=== PATIENT | male | born 1985 | race Caucasian/White ===

== ENCOUNTER 2018-08-30 18:48 | Emergency (ER) | payer OTHER, SELFPAY ==
[2018-08-30 18:55] VITALS: BP 167/142; PULSE 80; RESP 16; TEMP 36.9; O2SAT 96
[2018-08-30] MEDS: Tetracaine 0.5% 4 ML BTL (19:15)
--- NOTE | 2018-08-30 19:26 | W.ED.GENAD ---
Discharge Plan Disposition Patient Disposition: HOME Condition: Fair Discharge Details Chief Complaint: EyeProblem Clinical Impression: Foreign body in eye, Abrasion, corneal Primary Care Provider: Deisy Anthony ED Provider: Spring Mcmahan Home Meds and New Rx's Prescriptions: No Action No Known Home Meds RF: 0 Discharge Instructions Instructions: Corneal Abrasion (ED), Eye Foreign Body (ED) Additional Instructions: Continue to use the erythromycin ointment to the right eye 4 times daily. Please follow-up with [facility]. If you develop eye pain, discharge, changes in vision or other new/worsening symptoms please seek care urgently once again. Referrals: Deisy Anthony [Primary Care Provider] - Discharge Data Discharge Date/Time-TO BE ENTERED AT DEPARTURE: 08/30/18 20:04 Medical Decision Making Patient is a 32 year old male presenting with c/c of right eye pain. Reprots that yesterday, while at work, he believes he suffered FB to the right eye. States that he did flush the eye but that despite this, his FB sensation has persisted. Reports that the FB feels to be along the lateral aspect of the eye. Has noted it to be injected. Reprots that vision can be slightly blurred compared to baseline. Wears corrective lenses at baseline. No contact lenses. Was wearing protective eye equipment at the time he suffered the presumed FB. On exam, a very small flec of foreign debris was noted when the upper lid was everted, this was removed with q-tip. Patient immediately feels improved. Plan to now evaluate with slit lamp. Secondary to shortage, no fluoroscein is available. Patient was examined under slit lamp without fluorscein. No further FB was noted. Noted small abrasions just left of center. Patient will be treated for corneal abrasion iwth erythromycin ophthalmic ointment. He typical receives care at [facility], will contact them tomorrow to schedule follow up appointment as soon as possible. He was given strict return precautions. He continues to report that pain and FB sensation have resolved after removal of FB in upper lid. All of his questions and concerns were addressed, he is in agreement with this plan. HPI General Mode of arrival: ambulatory. Date/Time Provider Initiated Documentation: 08/30/18 19:07. Limitations to Documentation: no limitations. Information obtained by: patient. History of Present Illness 32 year old M presents to the emergency department with the chief complaint of left eye pain and injection, described as moderate, with intensity rated at 5. Quality is described as aching, and is localized to the eyes. Patient reports no radiation. Patient started experiencing this day(s) (1) and it has been constant. No relieving factors improve symptom(s), Movement worsens symptoms (blinking makes eye pain feel worse) . Patient notes no other symptoms.; denies fever/chills, headaches, loss of appetite and rash. Patient did receive the following treatments prior to arrival, other (patient flushed eye yesterday) Related Data Home Medications Medication Instructions Recorded Confirmed Unknown [No Known Home Meds] 08/30/18 08/30/18 Allergies Allergy/AdvReac Type Severity Reaction Status Date / Time No Known Allergies Allergy Unverified 08/30/18 19:01 General Stated Complaint: EyeProblem SHANEKA: 3 Review of Systems Constitutional Reports as per HPI, Denies chills and Denies fever(s) Eyes Reports as per HPI, Denies change in vision, Denies diplopia, Denies eye discharge, Denies floaters, Reports irritation, Denies loss of vision and Reports eye pain (FB sensation) ENT Denies mouth pain, Denies nasal discharge, Denies nasal obstruction and Denies nasal trauma Respiratory Denies cough Integumentary/Breasts Denies skin pain, Denies sores, Denies wounds and Denies jaundice Neurologic Denies loss of vision [facility] Social History Smoking/Tobacco Use Status: Current-Occasional Exam Const General: cooperative, healthy appearing, comfortable, no acute distress, well developed and well groomed Nutritional Appearance: average body habitus Orientation: alert and awake [facility] Head: normal to inspection and normocephalic Ears: hearing grossly normal bilaterally and external ears normal Face and sinus: normal facial exam and sinuses nontender Eyes General: appearance normal, both eyes and all related structures Alignment and Position: alignment normal Eyelids: eyelids normal Conjunctivae: conjunctival abnormality (patient appears injected on the left eye. No discharge) Cornea: corneas abnormal on the left abrasion central; fluorescein not used, without edema, with no foreign body noted and without ulcerations Pupils: PERRL EOM: EOM intact bilaterally Direct ophthalmoscopy: normal light reflex Neck Neck: normal visual inspection, full ROM and no lymphadenopathy Resp Effort & Inspection: normal respiratory effort, able to speak in complete sentences and no respiratory distress Auscultation: clear to auscultation bilaterally Cardio Rate: regular rate Rhythm: regular rhythm Heart Sounds: S1 normal and S2 normal Skin General skin exam: no rashes or lesions noted Lesions: no lesions Rashes: no rashes Neuro General: alert and awake Cranial Nerves: CN's II-XI intact bilaterally Cognition: normal cognition Speech: speech normal Gait: normal gait Psych Appearance: grossly normal and well kempt Mental Status: mental status grossly normal Speech and Movement: speech and movement normal Mood: congruent mood Course Vital Signs Temperature 36.9 C 08/30/18 18:55 Pulse 80 08/30/18 18:55 Respiratory Rate 16 08/30/18 18:55 Blood Pressure 167/142 H 08/30/18 18:55 Pulse Oximetry 96 08/30/18 18:55 Temperature 36.9 C 08/30/18 18:55 Temperature Source Skin 08/30/18 18:55 Pulse 80 08/30/18 18:55 Respiratory Rate 16 08/30/18 18:55 Respiratory Effort 08/30/18 19:02 Blood Pressure 167/142 H 08/30/18 18:55 Blood Pressure Position Sitting 08/30/18 18:55 Pulse Oximetry 96 08/30/18 18:55 Oxygen Delivery Method Room Air 08/30/18 18:55 Oxygen Flow Rate 0 08/30/18 18:55 Pain Level 5 08/30/18 18:55 Comment 08/30/18 18:55
--- NOTE | 2018-08-30 19:30 | ED.GENADUL_ITS ---
Discharge Plan Disposition Patient Disposition: HOME Condition: Fair Discharge Details Chief Complaint: EyeProblem Clinical Impression: Foreign body in eye, Abrasion, corneal Primary Care Provider: Deisy Anthony ED Provider: Spring Mcmahan Home Meds and New Rx's Prescriptions: No Action No Known Home Meds RF: 0 Discharge Instructions Instructions: Corneal Abrasion (ED), Eye Foreign Body (ED) Additional Instructions: Continue to use the erythromycin ointment to the right eye 4 times daily. Please [place] [facility] If you develop eye pain, discharge, changes in vision or other new/worsening symptoms please seek care urgently once again. Referrals: Deisy Anthony [Primary Care Provider] - Discharge Data Discharge Date/Time-TO BE ENTERED AT DEPARTURE: 08/30/18 20:04 Medical Decision Making Patient is a 32 year old male presenting with c/c of right eye pain. Reprots that yesterday, while at work, he believes he suffered FB to the right eye. States that he did flush the eye but that despite this, his FB sensation has persisted. Reports that the FB feels to be along the lateral aspect of the eye. Has noted it to be injected. Reprots that vision can be slightly blurred compared to baseline. Wears corrective lenses at baseline. No contact lenses. Was wearing protective eye equipment at the time he suffered the presumed FB. On exam, a very small flec of foreign debris was noted when the upper lid was everted, this was removed with q-tip. Patient immediately feels improved. Plan to now evaluate with slit lamp. Secondary to shortage, no fluoroscein is available. Patient was examined under slit lamp without fluorscein. No further FB was noted. Noted small abrasions just left of center. Patient will be treated for corneal abrasion iwth erythromycin ophthalmic ointment. He typical receives care [place] [facility], will contact them tomorrow to schedule follow up appointment as soon as possible. He was given strict return precautions. He continues to report that pain and FB sensation have resolved after removal of FB in upper lid. All of his questions and concerns were addressed, he is in agreement with this plan. HPI General Mode of arrival: ambulatory . Date/Time Provider Initiated Documentation: 08/30/18 19:07 . Limitations to Documentation: no limitations . Information obtained by: patient . History of Present Illness 32 year old M presents to the emergency department with the chief complaint of left eye pain and injection, described as moderate, with intensity rated at 5. Quality is described as aching, and is localized to the eyes. Patient reports no radiation. Patient started experiencing this day(s) (1) and it has been constant. No relieving factors improve symptom(s), Movement worsens symptoms (blinking makes eye pain feel worse) . Patient notes no other symptoms.; denies fever/chills, headaches, loss of appetite and rash. Patient did receive the following treatments prior to arrival, other (patient flushed eye yesterday) Related Data Home Medications Medication Instructions Recorded Confirmed Unknown [No Known Home Meds] 08/30/18 08/30/18 Allergies Allergy/AdvReac Type Severity Reaction Status Date / Time No Known Allergies Allergy Unverified 08/30/18 19:01 General Stated Complaint: EyeProblem SHANEKA: 3 Review of Systems Constitutional Reports as per HPI, Denies chills and Denies fever(s) Eyes Reports as per HPI, Denies change in vision, Denies diplopia, Denies eye discharge, Denies floaters, Reports irritation, Denies loss of vision and Reports eye pain (FB sensation) ENT Denies mouth pain, Denies nasal discharge, Denies nasal obstruction and Denies nasal trauma Respiratory Denies cough Integumentary/Breasts Denies skin pain, Denies sores, Denies wounds and Denies jaundice Neurologic Denies loss of vision [facility] Social History Smoking/Tobacco Use Status: Current-Occasional Exam Const General: cooperative, healthy appearing, comfortable, no acute distress, well developed and well groomed Nutritional Appearance: average body habitus Orientation: alert and awake [facility] Head: normal to inspection and normocephalic Ears: hearing grossly normal bilaterally and external ears normal Face and sinus: normal facial exam and sinuses nontender Eyes General: appearance normal, both eyes and all related structures Alignment and Position: alignment normal Eyelids: eyelids normal Conjunctivae: conjunctival abnormality (patient appears injected on the left eye. No discharge) Cornea: corneas abnormal on the left abrasion central; fluorescein not used, without edema, with no foreign body noted and without ulcerations Pupils: PERRL EOM: EOM intact bilaterally Direct ophthalmoscopy: normal light reflex Neck Neck: normal visual inspection, full ROM and no lymphadenopathy Resp Effort & Inspection: normal respiratory effort, able to speak in complete sentences and no respiratory distress Auscultation: clear to auscultation bilaterally Cardio Rate: regular rate Rhythm: regular rhythm Heart Sounds: S1 normal and S2 normal Skin General skin exam: no rashes or lesions noted Lesions: no lesions Rashes: no rashes Neuro General: alert and awake Cranial Nerves: CN's II-XI intact bilaterally Cognition: normal cognition Speech: speech normal Gait: normal gait Psych Appearance: grossly normal and well kempt Mental Status: mental status grossly normal Speech and Movement: speech and movement normal Mood: congruent mood Course Vital Signs Temperature 36.9 C 08/30/18 18:55 Pulse 80 08/30/18 18:55 Respiratory Rate 16 08/30/18 18:55 Blood Pressure 167/142 H 08/30/18 18:55 Pulse Oximetry 96 08/30/18 18:55 Temperature 36.9 C 08/30/18 18:55 Temperature Source Skin 08/30/18 18:55 Pulse 80 08/30/18 18:55 Respiratory Rate 16 08/30/18 18:55 Respiratory Effort 08/30/18 19:02 Blood Pressure 167/142 H 08/30/18 18:55 Blood Pressure Position Sitting 08/30/18 18:55 Pulse Oximetry 96 08/30/18 18:55 Oxygen Delivery Method Room Air 08/30/18 18:55 Oxygen Flow Rate 0 08/30/18 18:55 Pain Level 5 08/30/18 18:55 Comment 08/30/18 18:55
[2018-08-30] MEDS: Erythromycin Ophth Oint 3.5 GM TUBE OD (19:53)
== END 2018-08-30 20:04 | disposition home or self-care (01) ==
PROVIDERS: Emergency Provider Physician Assistant; PCP Nurse Practitioner
DX: T15.81XA Foreign body in other and multiple parts of external eye, right eye, initial encounter (principal); S05.01XA Injury of conjunctiva and corneal abrasion without foreign body, right eye, initial encounter
CPT/HCPCS: 99283

== ENCOUNTER 2019-05-09 10:19 | Emergency (ER) | payer OTHER, SELFPAY ==
[2019-05-09 10:22] VITALS: BP 126/75; PULSE 72; RESP 16; TEMP 36.8; O2SAT 98
--- NOTE | 2019-05-09 10:36 | W.ED.GENAD ---
Discharge Plan Disposition Patient Disposition: HOME Condition: Improving Discharge Details Chief Complaint: Abd Prob Clinical Impression: Abdominal pain Primary Care Provider: Deisy Anthony ED Provider: Fletcher Gagnon Home Meds and New Rx's Prescriptions: No Action No Known Home Meds RF: 0 Discharge Instructions Instructions: Abdominal Pain (ED) Additional Instructions: I recommend you begin Metamucil, available [id number], once daily. Return if you develop a fever, recurrent abdominal pain, or any other acute concerns. Medical Decision Making 33-year-old male presents from home with right abdominal and flank pain. He is afebrile, normotensive, with an exam that reveals both right flank and right lower quadrant tenderness. Differential diagnosis includes renal colic, small bowel obstruction, appendicitis. IV placed, labs obtained, patient given parenteral fluids, analgesic, antiemetic and patient referred for CT scan. CBC with white count 6, hematocrit 46, platelets 281. Chemistries are unremarkable. Urinalysis with concentrated urine with specific gravity 1.03, trace ketones. CT scan without significant acute findings. Patient's pain is improved, his abdomen is soft and benign on reexamination. He reveals recent constipation difficulties with use of MiraLAX. I discussed with him that he may have some bowel transit issues and would benefit from a trial of Metamucil. He stable and improved, understands return precautions, will discharge home at this time. HPI General Mode of arrival: ambulatory. Date/Time Provider Initiated Documentation: 05/09/19 10:20. Limitations to Documentation: no limitations. Information obtained by: patient. History of Present Illness 33 year old M presents to the emergency department with the chief complaint of Right-sided abdominal pain, described as moderate, Quality is described as constant, and is localized to the abdomen and right. Patient abdomen. Patient started experiencing this hour(s) and it has been constant. No relieving factors improve symptom(s), No exacerbating factors reported . Patient notes other (Nauseated, dark urine, no fever). Patient did receive the following treatments prior to arrival, none Related Data Home Medications Medication Instructions Recorded Confirmed Unknown [No Known Home Meds] 08/30/18 05/09/19 Allergies Allergy/AdvReac Type Severity Reaction Status Date / Time No Known Allergies Allergy Unverified 05/09/19 10:27 General Stated Complaint: Abd Prob SHANEKA: 3 Review of Systems Review of Systems 6 systems reviewed and otherwise neg [facility] Social History Smoking/Tobacco Use Status: Former Tobacco Use Alcohol Intake: former Drug use: Never Substance use type: does not use Do you feel safe at home: Yes Do you feel safe in your relationship?: Yes Additional Social history: quit smoking 3-4 years ago stopped drinking 26 days ago Exam Narrative Exam Narrative: GEN: awake, alert, oriented 3. Pleasant, well groomed, interactive. HEAD: Normocephalic, atraumatic ENT: Mucous membranes moist, oropharynx unremarkable, External ear exam unremarkable EYES: PERRL, EOMI NECK: Full ROM, no GABBY, no menigismus CHEST/RESP: Nontender, clear to auscultation bilateral, no wheeze/rhonchi/rales CARDIOVASCULAR: RRR, no murmur, rub stalin. 2+ Rad pulse bilateral ABDOMEN: Soft, tender right lower quadrant and right flank, no mass. +Bowel sounds EXT: Full ROM, no edema, no rash Neuro: Grossly normal neurologic exam, conversant, interactive. Psych: Speech fluent, thoughts congruent, affect normal Course Vital Signs Temperature 36.8 C 05/09/19 10:22 Pulse 72 05/09/19 10:22 Respiratory Rate 16 05/09/19 10:22 Blood Pressure 126/75 05/09/19 10:22 Pulse Oximetry 98 05/09/19 10:22 Temperature 36.8 C 05/09/19 10:22 Temperature Source Skin 05/09/19 10:22 Pulse 72 05/09/19 10:22 Respiratory Rate 16 05/09/19 10:22 Blood Pressure 126/75 05/09/19 10:22 Blood Pressure Position Sitting 05/09/19 10:22 Pulse Oximetry 98 05/09/19 10:22 Oxygen Delivery Method Room Air 05/09/19 10:22 Oxygen Flow Rate 0 05/09/19 10:22 Pain Level 7 05/09/19 10:22
--- NOTE | 2019-05-09 10:39 | ED.GENADUL_ITS ---
Discharge Plan Disposition Patient Disposition: HOME Condition: Improving Discharge Details Chief Complaint: Abd Prob Clinical Impression: Abdominal pain Primary Care Provider: Deisy Anthony ED Provider: Fletcher Gagnon Home Meds and New Rx's Prescriptions: No Action No Known Home Meds RF: 0 Discharge Instructions Instructions: Abdominal Pain (ED) Additional Instructions: I recommend you begin Metamucil, available [id number], once daily. Return if you develop a fever, recurrent abdominal pain, or any other acute concerns. Medical Decision Making 33-year-old male presents from home with right abdominal and flank pain. He is afebrile, normotensive, with an exam that reveals both right flank and right lower quadrant tenderness. Differential diagnosis includes renal colic, small bowel obstruction, appendicitis. IV placed, labs obtained, patient given parenteral fluids, analgesic, antiemetic and patient referred for CT scan. CBC with white count 6, hematocrit 46, platelets 281. Chemistries are unremarkable. Urinalysis with concentrated urine with specific gravity 1.03, trace ketones. CT scan without significant acute findings. Patient's pain is improved, his abdomen is soft and benign on reexamination. He reveals recent constipation difficulties with use of MiraLAX. I discussed with him that he may have some bowel transit issues and would benefit from a trial of Metamucil. He stable and improved, understands return precautions, will discharge home at this time. HPI General Mode of arrival: ambulatory . Date/Time Provider Initiated Documentation: 05/09/19 10:20 . Limitations to Documentation: no limitations . Information obtained by: patient . History of Present Illness 33 year old M presents to the emergency department with the chief complaint of Right-sided abdominal pain, described as moderate, Quality is described as constant, and is localized to the abdomen and right. Patient abdomen. Patient started experiencing this hour(s) and it has been constant. No relieving factors improve symptom(s), No exacerbating factors reported . Patient notes other (Nauseated, dark urine, no fever). Patient did receive the following treatments prior to arrival, none Related Data Home Medications Medication Instructions Recorded Confirmed Unknown [No Known Home Meds] 08/30/18 05/09/19 Allergies Allergy/AdvReac Type Severity Reaction Status Date / Time No Known Allergies Allergy Unverified 05/09/19 10:27 General Stated Complaint: Abd Prob SHANEKA: 3 Review of Systems Review of Systems 6 systems reviewed and otherwise neg [facility] Social History Smoking/Tobacco Use Status: Former Tobacco Use Alcohol Intake: former Drug use: Never Substance use type: does not use Do you feel safe at home: Yes Do you feel safe in your relationship?: Yes Additional Social history: quit smoking 3-4 years ago stopped drinking 26 days ago Exam Narrative Exam Narrative: GEN: awake, alert, oriented 3. Pleasant, well groomed, interactive. HEAD: Normocephalic, atraumatic ENT: Mucous membranes moist, oropharynx unremarkable, External ear exam unremarkable EYES: PERRL, EOMI NECK: Full ROM, no GABBY, no menigismus CHEST/RESP: Nontender, clear to auscultation bilateral, no wheeze/rhonchi/rales CARDIOVASCULAR: RRR, no murmur, rub stalin. 2+ Rad pulse bilateral ABDOMEN: Soft, tender right lower quadrant and right flank, no mass. +Bowel sounds EXT: Full ROM, no edema, no rash Neuro: Grossly normal neurologic exam, conversant, interactive. Psych: Speech fluent, thoughts congruent, affect normal Course Vital Signs Temperature 36.8 C 05/09/19 10:22 Pulse 72 05/09/19 10:22 Respiratory Rate 16 05/09/19 10:22 Blood Pressure 126/75 05/09/19 10:22 Pulse Oximetry 98 05/09/19 10:22 Temperature 36.8 C 05/09/19 10:22 Temperature Source Skin 05/09/19 10:22 Pulse 72 05/09/19 10:22 Respiratory Rate 16 05/09/19 10:22 Blood Pressure 126/75 05/09/19 10:22 Blood Pressure Position Sitting 05/09/19 10:22 Pulse Oximetry 98 05/09/19 10:22 Oxygen Delivery Method Room Air 05/09/19 10:22 Oxygen Flow Rate 0 05/09/19 10:22 Pain Level 7 05/09/19 10:22
[2019-05-09] MEDS: Normal Saline 1,000 ML 1000 ML IV (10:40)
[2019-05-09] MEDS: Normal Saline Flush 10 ML SYR IVP (10:40)
[2019-05-09 10:51] LABS: Abs Immature Grans 0.01 k/cumm (0.0-0.09); Absolute Basophil Count 0.01 k/cumm (0.0-0.2); Absolute Eosinophil Count 0.07 k/cumm (0.0-0.7); Absolute Lymphocyte Count 1.57 k/cumm (1.2-3.4); Absolute Neutrophil Count 3.91 k/cumm (1.2-6.7); Basophils % 0.2; Eosinophils % 1.2; HCT 46.9 % (40.0-50.0); HGB 16.2 g/dL (13.5-17.5); Immature Grans % 0.2; Lymphocytes % 25.9; Mean Corp. HGB Concentration 34.5 g/dL (32.0-36.0); Mean Corpuscular Hemoglobin 29.9 pg (27.0-33.0); Mean Corpuscular Volume 86.7 fL (80-95); Mean Platelet Volume 10.4 fL (8.0-11.0); Monocytes % 8.2; Neutrophils % 64.3; Platelet Count 281 x1000/uL (130-400); RBC 5.41 m/cumm (4.50-6.00); RBC Distribution Width 12.2 % (11.8-14.1); White Blood Cell Count 6.07 k/cumm (4.4-10.8)
[2019-05-09] MEDS: Ondansetron 4 MG/2 ML VIAL IVP (10:51)
[2019-05-09] MEDS: Ketorolac 30 MG/ML VIAL IVP (10:51)
[2019-05-09 11:07] LABS: ALT 38 U/L (12-78); AST 12 U/L (15-37); Albumin 4.1 g/dL (3.4-5.0); Alkaline Phosphatase 83 U/L (46-116); Anion Gap 10.5 mmol/L (3-11); BUN 11 mg/dL (7-18); Bilirubin, Total 0.5 mg/dL (0.2-1.0); CO2 25.5 mmol/L (21.0-32.0); CREATININE 0.87 mg/dL (0.70-1.30); Calcium 9.4 mg/dL (8.5-10.1); Chloride 107 mmol/L (98-107); Glucose 110 mg/dL (70-100); Potassium 3.7 mmol/L (3.5-5.1); Sodium 143 mmol/L (136-145); Total Protein 7.9 g/dL (6.4-8.2)
[2019-05-09 11:08] LABS: Bilirubin Small (Negative); Blood Negative (Negative); Clarity Clear (Clear); Glucose Negative (Negative); Ketones Trace mg/dL (Negative); Leukocyte Esterase Negative (Negative); Nitrite Negative (Negative); Specific Gravity >= 1.030 (1.005-1.025)
[2019-05-09 11:19] LABS: Bacteria Few HPF (Negative); C & S Indicated? No; Casts Negative LPF (Negative); Crystals Negative HPF (Negative); Epithelial Cells Few HPF (Negative); Mucus Moderate (Negative); RBC Negative (0-2)
--- NOTE | 2019-05-09 11:45 | DI.CT_ITS ---
SYMPTOM/DIAGNOSIS: RIGHT LOWER QUADRANT AND RIGHT FLANK PAIN ABDOMINAL AND PELVIC CT: 05/09 CT examination of the abdomen and pelvis was performed with a bolus infusion of 100 cc [address] examination of the abdomen and pelvis was performed following the intravenous infusion of Omnipaque 350 and the ingestion of oral contrast. The liver and spleen are normal in size and shape with no evidence of any focal defects. There is no evidence of biliary dilatation. The gallbladder has a normal CT appearance. The pancreas appears intact and is not enlarged. There is no evidence of retroperitoneal lymphadenopathy. The bladder appears intact. The kidneys show bilateral function and there is no evidence of a renal mass. The vascular structures appear intact. There is no evidence of a mass in the pelvis. There is no evidence of a fluid collection or adenopathy. Incidental tiny fat containing bilateral inguinal hernias noted. CONCLUSION: Normal abdominal and pelvic CT.
[2019-05-09 12:30] VITALS: BP 125/72; PULSE 64; RESP 16; TEMP 37.2; O2SAT 95
== END 2019-05-09 12:38 | disposition home or self-care (01) ==
PROVIDERS: Emergency Provider Emergency Medicine; PCP Nurse Practitioner
DX: R10.31 Right lower quadrant pain (principal)
CPT/HCPCS: 36415; 80053; 96361; 96374; 96375; 99285; 74177; 81003; 81015; 85025; 99284; J1885; J2405

== ENCOUNTER 2019-07-06 09:07 | Outpatient (CLI) | payer OTHER, SELFPAY ==
[2019-07-06 10:00] LABS: Abs Immature Grans 0.01 k/cumm (0.0-0.09); Absolute Basophil Count 0.02 k/cumm (0.0-0.2); Absolute Eosinophil Count 0.09 k/cumm (0.0-0.7); Absolute Lymphocyte Count 1.67 k/cumm (1.2-3.4); Absolute Monocyte Count 0.62 k/cumm (0.11-0.7); Absolute Neutrophil Count 5.66 k/cumm (1.2-6.7); Basophils % 0.2; Eosinophils % 1.1; HCT 43.1 % (40.0-50.0); HGB 14.9 g/dL (13.5-17.5); Immature Grans % 0.1; Lymphocytes % 20.7; Mean Corp. HGB Concentration 34.6 g/dL (32.0-36.0); Mean Corpuscular Hemoglobin 29.6 pg (27.0-33.0); Mean Corpuscular Volume 85.7 fL (80-95); Mean Platelet Volume 10.1 fL (8.0-11.0); Monocytes % 7.7; Neutrophils % 70.2; Platelet Count 272 x1000/uL (130-400); RBC 5.03 m/cumm (4.50-6.00); RBC Distribution Width 12.3 % (11.8-14.1); White Blood Cell Count 8.07 k/cumm (4.4-10.8)
[2019-07-06 10:34] LABS: ALT 35 U/L (16-63); AST 14 U/L (15-37); Albumin 3.6 g/dL (3.4-5.0); Alkaline Phosphatase 84 U/L (46-116); Anion Gap 8.8 mmol/L (3-11); BUN 11 mg/dL (7-18); Bilirubin, Total 0.5 mg/dL (0.2-1.0); CO2 27.2 mmol/L (21.0-32.0); CREATININE 0.87 mg/dL (0.70-1.30); Calcium 8.7 mg/dL (8.5-10.1); Calculated LDL 113 mg/dL; Chloride 106 mmol/L (98-107); Cholesterol 177 mg/dL (50-200); Glucose 97 mg/dL (70-100); HDL Cholesterol 33 mg/dL (40-60); Sodium 142 mmol/L (136-145); TSH (W/Ref FT4) 2.75 uIU/mL (0.36-3.74); Total Protein 6.8 g/dL (6.4-8.2); Triglyceride 158 mg/dL (30-150)
[2019-07-07 08:36] LABS: Vitamin D 25 Total 20.1 ng/ml (30-100)
== END 2019-07-06 09:27 ==
PROVIDERS: PCP Nurse Practitioner; Visit Provider Nurse Practitioner Psychiatric/Mental Health
DX: F32.9 Major depressive disorder, single episode, unspecified (principal)
CPT/HCPCS: 36415; 80053; 80061; 82306; 83721; 84443; 85025

== ENCOUNTER 2019-07-27 09:43 | Outpatient (CLI) | payer OTHER, SELFPAY ==
[2019-07-29 11:35] LABS: Hepatitis C Ab w Rflx HCV PCR Negative (NEGAT)
== END 2019-07-27 10:03 ==
PROVIDERS: PCP Nurse Practitioner Adult Health; Visit Provider Internal Medicine Gastroenterology
DX: Z72.89 Other problems related to lifestyle (principal); Z11.59 Encounter for screening for other viral diseases; Z01.84 Encounter for antibody response examination
CPT/HCPCS: 36415; 86803

== ENCOUNTER 2019-10-30 01:22 | Outpatient (CLI) | payer OTHER, SELFPAY ==
--- NOTE | 2019-10-30 13:35 | NS.NUTBLAN_ITS ---
Description: 34 year old male that reports 50 lbs weight gain in last year that he attributes to increase in appetite after quiting substances in April 2019. Ht. 6'1 Wt: 294 lbs BMI: 38. Family history of IDDM, obesity, substance abuse. Reports that he stopped using alcohol/benzos/cocaine April 2019 and started using sleeping pills trazadone and mirtazapine due to anxiety and insomnia. Works second shift as welder/fabricator, typically works 6 days per week. Reports that his appetite is much higher since stopping other substances. Very frustrated that he is gaining weight as a result of trying to get healthier- sober/clean. Assessment: recent weight gain due to excessive intake of processed foods, convenience foods and lack of regular exercise. Increase in appetite may also be due to starting mirtazapine, known appetite stimulant as well as antidepressant. Educated Buck on ways to improve his diet choices by limiting processed foods, increasing fruits and vegetables, lean protein and complex carbohydrates. Meal plan given. Reviewed the risks of obesity with strong family history of Diabetes. Encouraged Buck to continue his sobriety and to find another outlet for stress release. Is considering joining a local gym. receptive to education. No follow up visited made. Plan: 10% weight loss in next 3 months - goal of 10 lbs weight loss per month Join Gym and exercise 3-4 hours per week Follow meal plan provided Consider d/c mirtazapine and switch to a more weight neutral depression medication. Will be available prn.
== END 2019-10-30 01:42 ==
PROVIDERS: PCP Nurse Practitioner Adult Health; Visit Provider Dietitian, Registered
DX: E66.09 Other obesity due to excess calories (principal); Z68.38 Body mass index [BMI] 38.0-38.9, adult; Z71.3 Dietary counseling and surveillance
CPT/HCPCS: 97802

== ENCOUNTER 2020-01-08 11:41 | Outpatient (REF) | payer OTHER, SELFPAY | END 2020-01-08 12:01 | LOC: LBN 11:41 | PROVIDERS: PCP Nurse Practitioner Adult Health; Visit Provider Nurse Practitioner Adult Health | DX: R30.0 Dysuria (principal) | CPT/HCPCS: 87086 ==

== ENCOUNTER 2020-01-18 10:27 | Outpatient (REF) | payer OTHER, SELFPAY ==
[2020-01-20 15:50] LABS: Chlamydia Result Negative (Negative); GC Result Negative (Negative)
== END 2020-01-18 10:47 ==
LOC: LBN 10:27
PROVIDERS: PCP Nurse Practitioner Adult Health; Visit Provider Nurse Practitioner Adult Health
DX: R36.9 Urethral discharge, unspecified (principal); Z11.3 Encounter for screening for infections with a predominantly sexual mode of transmission; Z11.8 Encounter for screening for other infectious and parasitic diseases
CPT/HCPCS: 87491; 87591

== ENCOUNTER 2020-04-03 14:33 | Outpatient (REF) | payer OTHER, SELFPAY ==
[2020-04-03 19:32] LABS: ALT 42 U/L (16-63); AST 25 U/L (15-37); Albumin 3.7 g/dL (3.4-5.0); Alkaline Phosphatase 103 U/L (46-116); Anion Gap 7.6 mmol/L (3-11); BUN 13 mg/dL (7-18); Bilirubin, Total 0.4 mg/dL (0.2-1.0); CO2 28.4 mmol/L (21.0-32.0); CREATININE 1.04 mg/dL (0.70-1.30); Calcium 9.2 mg/dL (8.5-10.1); Chloride 102 mmol/L (98-107); Glucose 105 mg/dL (74-106); Potassium 3.9 mmol/L (3.5-5.1); Sodium 138 mmol/L (136-145); Total Protein 7.3 g/dL (6.4-8.2)
== END 2020-04-03 14:53 ==
LOC: LBN 14:33
PROVIDERS: PCP Nurse Practitioner Adult Health; Visit Provider Nurse Practitioner Adult Health
DX: F10.10 Alcohol abuse, uncomplicated (principal)
CPT/HCPCS: 80053

== ENCOUNTER 2020-08-07 08:43 | Outpatient (CLI) | payer SELFPAY ==
[2020-08-10 16:08] LABS: Patient Race White; SARS-CoV-2 RNA Undetected (Undetected); SARS-CoV-2 Specimen Source Nasopharynx
== END 2020-08-07 09:03 ==
PROVIDERS: PCP Nurse Practitioner Adult Health; Visit Provider Nurse Practitioner Family
DX: R50.9 Fever, unspecified (principal); R11.2 Nausea with vomiting, unspecified; Z20.828 Contact with and (suspected) exposure to other viral communicable diseases
CPT/HCPCS: U0003

== ENCOUNTER 2021-11-03 01:44 | Outpatient (CLI) | payer MEDICAID, SELFPAY ==
--- NOTE | 2021-11-03 13:39 | DI.CT_ITS ---
Exam(s) CT RENAL COLIC WO EXAM: CT RENAL COLIC WO CLINICAL HISTORY: Right sided urinary colic, urinary retention,n23. TECHNIQUE: Imaging Protocol: Axial computed tomography images with coronal and sagittal reformatted images were created and reviewed. COMPARISON: CT CT ABDOMEN PELVIS W from 05/09/2019 FINDINGS: The examination is limited due to patient motion artifact. ABDOMEN: Lung Bases: Atelectasis or scarring is seen in the lung bases. Liver: There is diffuse decreased attenuation of the liver consistent with fatty infiltration. The l iver measures 21 cm long. No measurable mass. Gallbladder and biliary tract: No radiodense calculus or biliary ductal dilation. Pancreas: Normal density, no abnormal calcifications or inflammatory process. Spleen: Normal. Kidneys: Normal size, contour and axis.No radiodense stones or obstructive uropathy. No masses seen. Adrenal glands: No mass is seen. Lymph nodes: Within normal limits. Abdominal Aorta: Abdominal portion non-dilated. PELVIS: Bladder:Symmetric distention, no gross wall thickening. Bowel: No obstruction or bowel wall thickening. Appendix is unremarkable. Peritoneal cavity: No ascites, collection or mesenteric inflammatory response. No free air. Reproductive organs: Within normal limits. Bones: Bone islands are again seen in the sacrum. Age-appropriate degenerative changes are seen in t he spine. Soft Tissues: Bilateral fat containing inguinal hernia are noted. IMPRESSION: 1. No evidence of nephrolithiasis or hydronephrosis. 2. Hepatomegaly and hepatic steatosis. RADIATION DOSE DELIVERED: 1,524.22mGy.cm Total DLP DATA REPOSITORY: All CT scans at this facility are submitted to the National Radiology Data Registry (NRDR) Dose Index Registry (DIR) with the [employer] (ACR). RADIATION OPTIMIZATION: All CT scans at this facility use at least one of these dose optimization te chniques: automated exposure control; mA and/or kV adjustment per patient size (includes targeted exa ms where dose is matched to clinical indication); or iterative reconstruction.
== END 2021-11-03 02:04 ==
PROVIDERS: PCP Nurse Practitioner Adult Health; Visit Provider Family Medicine
DX: N23 Unspecified renal colic (principal); K76.0 Fatty (change of) liver, not elsewhere classified; R16.0 Hepatomegaly, not elsewhere classified; R33.8 Other retention of urine
CPT/HCPCS: 74176

== ENCOUNTER 2021-11-04 03:42 | Outpatient (CLI) | payer MEDICAID, SELFPAY ==
[2021-11-04 12:43] LABS: Abs Immature Grans 0.03 10^3/uL (0.0-0.06); Absolute Basophil Count 0.03 10^3/uL (0.0-0.2); Absolute Eosinophil Count 0.18 10^3/uL (0.0-0.7); Absolute Lymphocyte Count 2.01 10^3/uL (1.2-3.4); Absolute Monocyte Count 0.62 10^3/uL (0.1-0.8); Absolute Neutrophil Count 3.91 10^3/uL (1.2-6.7); Basophils % 0.4; Eosinophils % 2.7; HCT 47.1 % (40.0-50.0); Immature Grans % 0.4; Lymphocytes % 29.6; MCH 30.8 pg (27.0-33.0); MCV 90.8 fL (80-95); MPV 9.9 fL (8.0-11.0); Monocytes % 9.1; Neutrophils % 57.8; Nucleated RBC 0 %; Platelet Count 236 10^3/uL (130-400); RBC 5.19 10^6/uL (4.36-5.78); RDW 11.9 % (11.8-14.1); RDW-SD 39.6 fL; WBC 6.78 10^3/uL (4.4-10.8)
[2021-11-04 12:49] LABS: VALPROIC ACID 35.3 ug/mL
[2021-11-04 15:20] LABS: ALT 66 U/L (16-63); AST 24 U/L (15-37); Albumin 3.9 g/dL (3.4-5.0); Alkaline Phosphatase 89 U/L (46-116); Anion Gap 10.3 mmol/L (3-11); BUN 11 mg/dL (7-18); Bilirubin, Total 0.4 mg/dL (0.2-1.0); CO2 26.7 mmol/L (21.0-32.0); CREATININE 0.9 mg/dL (0.70-1.30); Calcium 9.2 mg/dL (8.5-10.1); Calculated LDL 133 mg/dL (<100); Chloride 104 mmol/L (98-107); Cholesterol 234 mg/dL (<200); Glucose 90 mg/dL (74-106); HDL Cholesterol 44 mg/dL (40-60); Potassium 4.4 mmol/L (3.5-5.1); Sodium 141 mmol/L (136-145); TSH 4.22 uIU/mL (0.36-3.74); Total Protein 7.3 g/dL (6.4-8.2); Triglyceride 285 mg/dL (<150)
== END 2021-11-04 03:43 | disposition home or self-care (01) ==
LOC: LBO 03:42
PROVIDERS: PCP Nurse Practitioner Adult Health; Visit Provider Nurse Practitioner Psychiatric/Mental Health
DX: F41.9 Anxiety disorder, unspecified (principal); Z79.899 Other long term (current) drug therapy; Z51.81 Encounter for therapeutic drug level monitoring
CPT/HCPCS: 36415; 80053; 80061; 80164; 84443; 85025

== ENCOUNTER 2021-11-04 12:30 | Emergency (ER) | payer MEDICAID, SELFPAY ==
[2021-11-04 12:37] VITALS: BP 131/78; PULSE 82; RESP 18; TEMP 36.7; O2SAT 95
--- NOTE | 2021-11-04 13:00 | DI.US_ITS ---
Exam(s) US RENAL EXAM: US RENAL CLINICAL HISTORY: Right flank pain. TECHNIQUE: Carbone scale, color and spectral Doppler were used. COMPARISON: No exams were available for comparison FINDINGS: Renal size in cm: Right: 12.6 left: 12.5 Echogenicity: Normal Hydronephrosis: No Cyst or mass: No Nephrolithiasis: No No perinephric collection. Bladder:Normal Prevoid vol:19 Postvoid vol:0 Both ureteral jets were visualized. Prostate volume 12 cc. IMPRESSION: Negative renal ultrasound. DATA REPOSITORY:
--- NOTE | 2021-11-04 13:00 | DI.US_ITS ---
Exam(s) US SCROTUM EXAM: US SCROTUM CLINICAL HISTORY: right testicle pain. TECHNIQUE: Scrotal ultrasound performed using grayscale, color-flow and spectral Doppler analysis. COMPARISON: No exams were available for comparison FINDINGS: Right testicle: 4.8 x 2.9 x 3.5 cm Left testicle: 5.0 x 2.7 x 2.9 cm Echogenicity: Normal. Contour: Smooth. Mass: None seen. Microlithiasis: Few scattered microliths are seen bilaterally. Hydrocele: None. A 1 millimeter right scrotal sara is seen. Variocele: None. Hernia: No peristalsing bowel loop identified. Epididymis: Normal. DOPPLER: Color: Symmetric and uniform, no hyperemia. Duplex: Bilateral testicular arterial waveforms visualized. No right groin hernia, adenopathy or mass is seen. IMPRESSION: Mild bilateral testicular microlithiasis. 1 millimeter scrotal sara. DATA REPOSITORY:
[2021-11-04] MEDS: Ondansetron 4 MG/2 ML VIAL IVP (13:49)
[2021-11-04] MEDS: Normal Saline Flush 10 ML SYR IVP ×2 (13:50→15:15)
--- NOTE | 2021-11-04 13:52 | W.ED.GENAD ---
Discharge Plan Disposition Patient Disposition: HOME Condition: Stable Discharge Details Clinical Impression: Renal colic on right side, Acute lumbar myofascial strain Primary Care Provider: Dyana Cooper ED Provider: Filipe Byrnes Home Meds and New Rx's Prescriptions: New cyclobenzaprine 5 mg tablet 5 mg PO TID PRN (Reason: muscle spasm) Qty: 10 RF: 0 naproxen [Naprosyn] 500 mg tablet 500 mg PO BID PRN (Reason: pain) Qty: 20 RF: 0 Continued cholecalciferol (vitamin D3) 2,000 unit capsule 2,000 unit PO DAILY RF: 0 divalproex [Depakote] 250 mg tablet,delayed release (DR/EC) 250 mg PO DIRECTED Qty: 90 RF: 3 albuterol sulfate [Ventolin HFA] 90 mcg/actuation HFA aerosol inhaler 2 puff IH Q4H PRN (Reason: shortness of breath or wheezing) Qty: 18 RF: 0 dicyclomine 10 mg capsule 10 mg PO BID PRN (Reason: IBS/spasm) Qty: 180 RF: 3 tamsulosin 0.4 mg capsule 0.4 mg PO DAILY Qty: 20 RF: 0 acetaminophen-codeine 300-30 mg tablet 1 tab PO Q6H PRN (Reason: pain) Qty: 20 RF: 0 Narcan 4 mg/actuation spray,non-aerosol 4 mg intranasal Q2M PRN (Reason: opioid overdose) Qty: 2 RF: 0 vitamin B complex [B Complex-Vitamin B12] Tablet 1 tab PO DAILY RF: 0 melatonin 5 mg tablet 10 mg PO HS PRNRF: 0 trazodone 150 mg tablet 150 mg PO DAILY RF: 0 mirtazapine 15 mg tablet 15 mg PO QHS RF: 0 clonazepam 1 mg tablet 1 mg PO BID PRNRF: 0 prochlorperazine maleate 5 mg tablet See Rx Instructions PO TID PRN (Reason: nausea and vomiting) Qty: 60 RF: 2 Discharge Instructions Instructions: Muscle Strain (ED), Renal Colic (ED) Additional Instructions: Due to the meds you received in the emergency department please do not take the prescribed pain medication or any NSAID including ibuprofen or aspirin for the next 8 hours. You may take acetaminophen/Tylenol as needed and directed on packaging. Please follow-up with your primary care provider for reassessment of your discomfort if not improving and take medications as prescribed by your primary care provider as well to see if this helps your discomfort. Discharge Data Discharge Date/Time-TO BE ENTERED AT DEPARTURE: 11/04/21 15:55 Medical Decision Making Patient presenting to the emergency department for chief complaint of right flank and back pain. Patient states that this is been intermittent for the past couple weeks to a month and has been seen by primary care provider and CT imaging done yesterday. Patient unaware of CT results but primary care provider was concerned for possible renal calculi. Patient states continued pain, denies any fever chills, does state decreased urination but denies any penile discharge. States some radiation of pain into the testicle. Physical exam shows right CVA tenderness and paraspinal lumbar tenderness bilateral otherwise unremarkable exam. Plan to do ultrasound imaging and treat patient's pain and discomfort pending results. Review of previous CT imaging shows no acute findings noted no renal calculi no hydronephrosis. Review of today's labs is reassuring along with ultrasound imaging of the testicles and renal ultrasound both is negative except cytogenetic technologist noting some small calcifications noted in the right testicle. Urinalysis showed significant concentration but otherwise unremarkable as well. Given unremarkable work-up at this point I do not feel that patient has any emergent findings and differential diagnosis to include possible passed renal calculi with continued renal colic, thoracic lumbar strain, BPH with slight obstruction. Patient is already on tamsulosin and he was instructed to continue this medication, patient does state some slight improvement in discomfort. Patient was encouraged to continue to hydrate, was prescribed NSAIDs, and instructed to follow-up with primary care provider if not improving. After discussion of diagnosis and plan of care patient has no further needs, questions, or concerns and states clear understanding to return to the emergency department for any worsening symptoms. HPI General Mode of arrival: ambulatory. Date/Time Provider Initiated Documentation: 11/04/21 12:46. Limitations to Documentation: no limitations. Information obtained by: patient. History of Present Illness 36 year old M presents to the emergency department with the chief complaint of Right flank pain, described as severe, with intensity rated at 8. Quality is described as sharp, and is localized to the right (flank). Patient reports radiation to (right gentials). Patient started experiencing this week(s) (2) and it has been intermittent. No relieving factors improve symptom(s), No exacerbating factors reported . Patient notes other (dysuria). Patient did receive the following treatments prior to arrival, none Related Data Home Medications Medication Instructions Recorded Confirmed vitamin B complex 1 tab PO DAILY 08/05/19 08/04/21 cholecalciferol (vitamin D3) 50 2,000 unit PO DAILY 08/09/19 08/04/21 mcg (2,000 unit) capsule melatonin 5 mg tablet 10 mg PO HS PRN tab 08/09/19 08/04/21 trazodone 150 mg tablet 150 mg PO DAILY tab 08/09/19 08/04/21 divalproex 250 mg tablet,delayed 250 mg PO DIRECTED #90 tab 01/22/20 08/04/21 release albuterol sulfate 90 mcg/actuation 2 puff IH Q4H PRN #18 gm 02/19/20 08/04/21 aerosol inhaler clonazepam 1 mg tablet 1 mg PO BID PRN tab 03/06/20 08/04/21 mirtazapine 15 mg tablet 15 mg PO QHS tab 03/06/20 08/04/21 prochlorperazine maleate 5 mg See Rx Instructions PO TID PRN #60 07/09/20 08/04/21 tablet tab dicyclomine 10 mg capsule 10 mg PO BID PRN #180 cap 08/04/21 08/04/21 acetaminophen 300 mg-codeine 30 mg 1 tab PO Q6H PRN #20 tab 11/01/21 11/01/21 tablet naloxone 4 mg/actuation nasal spray 4 mg INTRANASAL Q2M PRN #2 ea 11/01/21 11/01/21 tamsulosin 0.4 mg capsule 0.4 mg PO DAILY #20 cap 11/01/21 11/01/21 cyclobenzaprine 5 mg PO TID PRN #10 tab 11/04/21 naproxen [Naprosyn] 500 mg PO BID PRN #20 tab 11/04/21 Previous Rx's Medication Instructions Recorded divalproex 250 mg tablet,delayed 250 mg PO DIRECTED #90 tab 01/22/20 release albuterol sulfate 90 mcg/actuation 2 puff IH Q4H PRN #18 gm 02/19/20 aerosol inhaler prochlorperazine maleate 5 mg See Rx Instructions PO TID PRN #60 07/09/20 tablet tab dicyclomine 10 mg capsule 10 mg PO BID PRN #180 cap 08/04/21 acetaminophen 300 mg-codeine 30 mg 1 tab PO Q6H PRN #20 tab 11/01/21 tablet naloxone 4 mg/actuation nasal spray 4 mg INTRANASAL Q2M PRN #2 ea 11/01/21 tamsulosin 0.4 mg capsule 0.4 mg PO DAILY #20 cap 11/01/21 cyclobenzaprine 5 mg PO TID PRN #10 tab 11/04/21 naproxen [Naprosyn] 500 mg PO BID PRN #20 tab 11/04/21 Allergies Allergy/AdvReac Type Severity Reaction Status Date / Time sulfamethoxazole Allergy Mild RASH Verified 11/04/21 12:40 [From Bactrim] trimethoprim [From Bactrim] Allergy Mild RASH Verified 11/04/21 12:40 General Stated Complaint: Nk/Back Pain SHANEKA: 3 Review of Systems Constitutional Constitutional: Denies chills, Denies fatigue and Denies fever(s) Cardiovascular Cardiovascular: Denies chest pain, Denies syncope and Denies dyspnea Respiratory Respiratory: Denies cough and Denies dyspnea Gastrointestinal Gastrointestinal: Reports abdominal pain, Denies nausea and Denies vomiting Genitourinary Genitourinary: Reports as per HPI, Reports difficulty urinating, Denies dysuria, Reports flank pain and Reports testicular pain Musculoskeletal Musculoskeletal: Reports back pain (right flank) Integumentary/Breasts Skin/Breast: Denies pruritus, Denies lesions and Denies rash Neurologic Neurologic: Denies confusion and Denies syncope Psychiatric Psychiatric: Denies confusion Endocrine Endocrine: Denies fatigue and Denies polyuria PFSH All Active Problems (Updated 11/04/21 @ 15:32 by Filipe Byrnes NP) Acute lumbar myofascial strain (Acute) Renal colic on right side (Acute) Urinary retention (Acute) IBS (irritable bowel syndrome) (Chronic) [facility] [place]; h/o colonoscopy & endoscopy with [facility] Elevated BP without diagnosis of hypertension (Acute) Migraine headache without aura (Chronic) Neuro--Depakote RX with compazine rescue med Chronic headache (Chronic) Neuro--Depakote RX with compazine rescue med Alcohol abuse (Acute) Quit 04/2019, cold turkey Relapse 2019 Obesity (Chronic) GERD (gastroesophageal reflux disease) (Chronic) Tums & Omeprazole PRN Anxiety (Chronic) [facility] Depression (Chronic) [facility] Medical History Bleeding of penis Treated with Doxy; resolved Constipation Metamucil resolved History of alcohol abuse Sober 04/2019 History of crack cocaine use Oropharyngeal candidiasis r/t inhaler use Rectal bleeding +Hemoccult test with GI; then NEG s/p stopping EtOH Surgical History H/O oral surgery Family History Father Diabetes Hypertension Substance abuse Alcohol abuse Mother Anxiety Asthma Depression Diabetes Hypertension Brother Anxiety Substance abuse Alcohol abuse Brother Substance abuse Alcohol abuse Uncle Substance abuse Throat cancer Paternal Grandfather Alcohol abuse Maternal Grandmother Brain tumor Other Brain cancer Lung cancer Parkinson's disease Social History Smoking/Tobacco Use Status: Former Tobacco Use Quit Date: 11/13/11 Tobacco: How many years used: 12 Smoking risk assessment performed?: Yes Alcohol Intake: current Alcohol Intake frequency: a few times a week Alcohol type: beer Counseling given: Yes Details: 3-4 x/week, 6 beers Drug use: Occasionally Substance use type: does not use, former substance user Date of last use: 4 Years and marijuana Counseling given: Yes Details: No IV Drug Use Adopted: No Caregiver/Support person: No Foster care: No Household members: none Housing: apartment Number of Children: 0 Communication Needs: Corrective Lenses Education Level: college Details: 1.5 years Do you need help understanding health information?: Never current occupation: [employer], [employer] Sexually active: Yes Do you think of yourself as: straight/heterosexual Current gender identity: male What type of physical activity do you participate in: walking and other Details: bike Frequency: 3-4 times per week Working smoke detector in home: Yes Fire extinguisher in home: Yes Carbon monox detector in home: Yes Do you feel safe at home: Yes Do you feel safe in your relationship?: Yes Victim of emotional abuse: No Victim of sexual abuse: No Exam Const General: cooperative and no acute distress Orientation: alert, awake and oriented x3 Resp Effort & Inspection: normal respiratory effort and able to speak in complete sentences Auscultation: clear to auscultation bilaterally Cardio Rate: regular rate Rhythm: regular rhythm Heart Sounds: S1 normal and S2 normal GI Palpation: soft and nontender Auscultation: normal bowel sounds Male General Exam: Yes normal external exam, No ecchymosis, No hernia and No inguinal lymphadenopathy Penis: normal penis Meatus: meatus normal Scrotum: scrotum normal and cremasteric reflex present Testes: normal, no testicular swelling and no testicular tenderness Back/Spine/Pelvis Back: CVA tenderness (Right) Cervical Spine: normal cervical lordosis Thoracic/Lumbar Spine: thoracic and lumbar spine normal to inspection, No thoracic spinal tenderness and No lumbar spinal tenderness Neuro General: patient alert, patient awake and patient oriented x3 Extrem General: capillary refill normal Course Vital Signs Vital signs: Vital Signs Temperature 36.7 C 11/04/21 12:37 Pulse 82 11/04/21 12:37 Respiratory Rate 18 11/04/21 12:37 Blood Pressure 131/78 11/04/21 12:37 Pulse Oximetry 95 11/04/21 12:37 Temperature 36.7 C 11/04/21 12:37 Temperature Source Temporal Artery Scan 11/04/21 12:37 Pulse 82 11/04/21 12:37 Respiratory Rate 18 11/04/21 12:37 Respiratory Effort Non-Labored 11/04/21 12:40 Blood Pressure 131/78 11/04/21 12:37 Blood Pressure Position Sitting 11/04/21 12:37 Pulse Oximetry 95 11/04/21 12:37 Oxygen Delivery Method Room Air 11/04/21 12:37 Oxygen Flow Rate 0 11/04/21 12:37 Pain Level 10 11/04/21 12:37
[2021-11-04 13:56] LABS: Abs Immature Grans 0.01 10^3/uL (0.0-0.06); Absolute Basophil Count 0.02 10^3/uL (0.0-0.2); Absolute Eosinophil Count 0.16 10^3/uL (0.0-0.7); Absolute Lymphocyte Count 1.76 10^3/uL (1.2-3.4); Absolute Monocyte Count 0.52 10^3/uL (0.1-0.8); Absolute Neutrophil Count 3.91 10^3/uL (1.2-6.7); Basophils % 0.3; Eosinophils % 2.5; HCT 46.6 % (40.0-50.0); HGB 15.8 g/dL (13.5-17.5); Immature Grans % 0.2; Lymphocytes % 27.6; MCH 30.6 pg (27.0-33.0); MCHC 33.9 % (32.0-36.0); MCV 90.3 fL (80-95); MPV 10.2 fL (8.0-11.0); Monocytes % 8.2; Neutrophils % 61.2; Nucleated RBC 0 %; Platelet Count 232 10^3/uL (130-400); RBC 5.16 10^6/uL (4.36-5.78); RDW 11.8 % (11.8-14.1); RDW-SD 39.2 fL; WBC 6.38 10^3/uL (4.4-10.8)
[2021-11-04 14:11] LABS: ALT 68 U/L (16-63); AST 35 U/L (15-37); Albumin 3.8 g/dL (3.4-5.0); Alkaline Phosphatase 88 U/L (46-116); Anion Gap 7.5 mmol/L (3-11); BUN 10 mg/dL (7-18); Bilirubin, Total 0.5 mg/dL (0.2-1.0); CO2 28.5 mmol/L (21.0-32.0); CREATININE 0.8 mg/dL (0.70-1.30); Chloride 99 mmol/L (98-107); Glucose 91 mg/dL (74-106); Potassium 4.5 mmol/L (3.5-5.1); Sodium 135 mmol/L (136-145); Total Protein 7.7 g/dL (6.4-8.2)
[2021-11-04] MEDS: Ketorolac 15 MG/ML VIAL IVP (15:14)
[2021-11-04 15:30] LABS: Bilirubin Negative (Negative); Blood Negative (Negative); Clarity Clear (Clear); Glucose Negative (Negative); Ketones Negative (Negative); Leukocyte Esterase Negative (Negative); Nitrite Negative (Negative); Specific Gravity >= 1.030 (1.005-1.025); Urobilinogen 0.2 EU/dL (Up TO 0.2)
== END 2021-11-04 15:55 | disposition home or self-care (01) ==
PROVIDERS: Emergency Provider Nurse Practitioner Family; PCP Nurse Practitioner Adult Health
DX: N23 Unspecified renal colic (principal); S39.012A Strain of muscle, fascia and tendon of lower back, initial encounter; X58.XXXA Exposure to other specified factors, initial encounter; N50.811 Right testicular pain; R10.9 Unspecified abdominal pain; R34 Anuria and oliguria
CPT/HCPCS: 76770; 80053; 96374; 96375; 99284; 76870; 81003; 85025; J1885; J2405

== ENCOUNTER 2021-11-20 21:27 | Emergency (ER) | payer MEDICAID, SELFPAY ==
[2021-11-20] VITALS (13 sets, daily range): BP systolic 122–138; BP diastolic 66–79; PULSE 59–73; RESP 15–24; TEMP 37; O2SAT 95–98
--- NOTE | 2021-11-20 21:30 | DI.CT_ITS ---
Exam(s) CT HEAD WO EXAM: CT HEAD WO CLINICAL HISTORY: head pain, fell. TECHNIQUE: Imaging Protocol: Axial computed tomography images with coronal and sagittal reformatted images were created and reviewed COMPARISON: CT FACIAL WITHOUT CONTRAST from 02/21/2010 FINDINGS: Ventricles and Extra axial spaces: Normal in size and morphology for the patient's age. Hemorrhage: None. Cerebral parenchyma: Normal. Midline shift: None. Brainstem/Cerebellum: Normal. Calvarium: Normal. Visualized Paranasal sinuses/Mastoids: Clear. Soft Tissues: Unremarkable. IMPRESSION: No acute intracranial process. RADIATION DOSE DELIVERED: 862.09mGy.cm Total DLP DATA REPOSITORY: All CT scans at this facility are submitted to the National Radiology Data Registry (NRDR) Dose Index Registry (DIR) with the [employer] (ACR). RADIATION OPTIMIZATION: All CT scans at this facility use at least one of these dose optimization te chniques: automated exposure control; mA and/or kV adjustment per patient size (includes targeted exa ms where dose is matched to clinical indication); or iterative reconstruction.
--- NOTE | 2021-11-20 21:30 | RT.EKG_ITS ---
APPROVED REPORT Exam: Resting ECG Reason for Exam: syncope Patient Location: E HR:70 bpm ECG Measurements Heart Rate 70 AXIS VT 147 P 54 QRSd 88 QRS 62 QT 389 T 15 QTc 419 Conclusion Sinus rhythm...normal P axis, V-rate 60- 99
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
[2021-11-20 21:56] LABS: Abs Immature Grans 0.03 10^3/uL (0.0-0.06); Absolute Basophil Count 0.02 10^3/uL (0.0-0.2); Absolute Eosinophil Count 0.19 10^3/uL (0.0-0.7); Absolute Lymphocyte Count 2.23 10^3/uL (1.2-3.4); Absolute Neutrophil Count 4.07 10^3/uL (1.2-6.7); Basophils % 0.3; Eosinophils % 2.7; HCT 43.2 % (40.0-50.0); HGB 14.4 g/dL (13.5-17.5); Immature Grans % 0.4; Lymphocytes % 31.7; MCH 30.1 pg (27.0-33.0); MCHC 33.3 % (32.0-36.0); MCV 90.4 fL (80-95); MPV 9.9 fL (8.0-11.0); Monocytes % 7.1; Neutrophils % 57.8; Nucleated RBC 0 %; Platelet Count 236 10^3/uL (130-400); RBC 4.78 10^6/uL (4.36-5.78); RDW 11.9 % (11.8-14.1); RDW-SD 39.6 fL; WBC 7.04 10^3/uL (4.4-10.8)
[2021-11-20 22:13] LABS: ALT 59 U/L (16-63); AST 16 U/L (15-37); Albumin 3.6 g/dL (3.4-5.0); Alkaline Phosphatase 89 U/L (46-116); Anion Gap 7.3 mmol/L (3-11); BUN 12 mg/dL (7-18); Bilirubin, Total 0.2 mg/dL (0.2-1.0); CO2 28.7 mmol/L (21.0-32.0); CREATININE 1.1 mg/dL (0.70-1.30); Calcium 8.9 mg/dL (8.5-10.1); Chloride 104 mmol/L (98-107); ETHANOL BLOOD < 3.0 mg/dL (<10); Glucose 111 mg/dL (74-106); Magnesium 1.8 mg/dL (1.8-2.4); Potassium 3.6 mmol/L (3.5-5.1); Sodium 140 mmol/L (136-145); Total Protein 6.8 g/dL (6.4-8.2); Troponin I < 50 ng/L (<or=60)
--- NOTE | 2021-11-20 22:31 | DI.VRAD_ITS ---
PROCEDURE INFORMATION: Exam: CT Head Without Contrast Exam date and time: 11/20/2021 9:42 PM Age: 36 years old Clinical indication: Injury or trauma; Fall; Blunt trauma (contusions or hematomas); Patient HX: Head pain, fell TECHNIQUE: Imaging protocol: Computed tomography of the head without contrast. COMPARISON: CT NECK WITH CONTRAST 08/18/2017 4:48 PM FINDINGS: Brain: No evidence for acute transcortical infarct. No mass effect or midline shift. No extra-axial collection. No acute intracranial hemorrhage. Basal cisterns are patent. Cerebral ventricles: No ventriculomegaly. Paranasal sinuses: Visualized sinuses are unremarkable. No fluid levels. Mastoid air cells: Visualized mastoid air cells are well aerated. Bones/joints: Unremarkable. No acute fracture. Soft tissues: Unremarkable. IMPRESSION: No acute intracranial hemorrhage or mass effect. Dictated and Authenticated by: Kenji Linares MD. Ordering:KIM Nielsen MD
== END 2021-11-20 23:21 | disposition home or self-care (01) ==
PROVIDERS: Emergency Provider Emergency Medicine; PCP Nurse Practitioner Adult Health
DX: R55 Syncope and collapse (principal); R51.9 Headache, unspecified; F14.11 Cocaine abuse, in remission; W18.39XA Other fall on same level, initial encounter
CPT/HCPCS: 36415; 36416; 80053; 82962; 93005; 99284; 70450; 80320; 83735; 84484; 85025; 93010; 99283

== ENCOUNTER 2022-08-24 18:27 | Outpatient (REF) | payer MEDICAID, SELFPAY ==
[2022-08-26 11:20] LABS: COVID-19 RT-PCR UVMMC Result Positive (Negative)
== END 2022-08-24 18:28 | disposition home or self-care (01) ==
LOC: LBN 18:27
PROVIDERS: PCP Nurse Practitioner Adult Health; Visit Provider Physician Assistant Medical
DX: J02.9 Acute pharyngitis, unspecified (principal); Z20.822 Contact with and (suspected) exposure to COVID-19
CPT/HCPCS: U0003; 87070

== ENCOUNTER 2023-01-16 16:29 | Outpatient (REF) | payer MEDICAID, SELFPAY ==
[2023-01-16 19:44] LABS: Anion Gap 8.3 mmol/L (3-11); BUN 9 mg/dL (7-18); CO2 27.7 mmol/L (21.0-32.0); CREATININE 0.9 mg/dL (0.70-1.30); Chloride 106 mmol/L (98-107); Estimated GFR 112.11 (mL/min/1.73m2); Glucose 108 mg/dL (74-106); Potassium 3.9 mmol/L (3.5-5.1); Sodium 142 mmol/L (136-145)
== END 2023-01-16 16:30 | disposition home or self-care (01) ==
LOC: LBN 16:29
PROVIDERS: PCP Nurse Practitioner Adult Health; Referring Provider Nurse Practitioner Adult Health; Visit Provider Nurse Practitioner Adult Health
DX: M25.561 Pain in right knee (principal)
CPT/HCPCS: 80048; 84550

== ENCOUNTER 2024-03-25 04:59 | Outpatient (CLI) | payer SELFPAY ==
[2024-03-25 16:34] LABS: Abs Immature Grans 0.03 10^3/uL (0.0-0.06); Absolute Basophil Count 0.04 10^3/uL (0.0-0.2); Absolute Eosinophil Count 0.13 10^3/uL (0.0-0.7); Absolute Lymphocyte Count 1.96 10^3/uL (1.2-3.4); Absolute Monocyte Count 0.48 10^3/uL (0.1-0.8); Absolute Neutrophil Count 4.27 10^3/uL (1.2-6.7); Basophils % 0.6 %; Eosinophils % 1.9 %; HCT 47.8 % (40.0-50.0); HGB 16.4 g/dL (13.5-17.5); Immature Grans % 0.4 %; Lymphocytes % 28.4 %; MCHC 34.3 % (32.0-36.0); MCV 90 fL (80-95); MPV 9.6 fL (8.0-11.0); Monocytes % 6.9 %; Neutrophils % 61.8 %; Platelet Count 222 10^3/uL (130-400); RBC 5.29 10^6/uL (4.36-5.78); WBC 6.91 10^3/uL (4.4-10.8)
[2024-03-25 17:27] LABS: ALT 108 U/L (16-63); AST 43 U/L (15-37); Albumin 3.7 g/dL (3.4-5.0); Alkaline Phosphatase 100 U/L (46-116); Anion Gap 10.9 mmol/L (3-11); BUN 9 mg/dL (7-18); Bilirubin, Total 0.3 mg/dL (0.2-1.0); CO2 26.1 mmol/L (21.0-32.0); Calcium 9.1 mg/dL (8.5-10.1); Chloride 104 mmol/L (98-107); Estimated GFR 98.18 (mL/min/1.73m2); Glucose 152 mg/dL (74-106); Sodium 141 mmol/L (136-145); Total Protein 7.3 g/dL (6.4-8.2); Uric Acid 6.2 mg/dL (3.5-7.2)
[2024-03-25 17:32] LABS: VALPROIC ACID 45.4 ug/mL
[2024-03-25 17:48] LABS: Cholesterol 252 mg/dL (<200); HDL Cholesterol 52 mg/dL (40-60); Triglyceride 432 mg/dL (<150)
[2024-03-25 18:14] LABS: LDL CHOLESTEROL 138 mg/dL (<100)
[2024-03-27 09:54] LABS: Lab Add On Test DONE
[2024-03-27 10:18] LABS: Hemoglobin A1C 5.6 % (<5.7)
== END 2024-03-25 05:00 | disposition home or self-care (01) ==
PROVIDERS: PCP Nurse Practitioner Adult Health; Visit Provider Nurse Practitioner Adult Health
DX: M10.9 Gout, unspecified (principal); R73.09 Other abnormal glucose; F41.0 Panic disorder [episodic paroxysmal anxiety]; F41.8 Other specified anxiety disorders; Z79.899 Other long term (current) drug therapy; Z51.81 Encounter for therapeutic drug level monitoring
CPT/HCPCS: 36415; 80048; 80053; 80061; 83721; 80164; 83036; 84550; 85014; 85018; 85025

== ENCOUNTER 2025-08-20 01:02 | Outpatient (CLI) | payer OTHER, SELFPAY ==
[2025-08-20 12:41] LABS: Hemoglobin A1C 4.9 % (<5.7)
[2025-08-20 13:01] LABS: ALT 50 U/L (16-63); AST 20 U/L (15-37); Albumin 3.6 g/dL (3.4-5.0); Alkaline Phosphatase 84 U/L (46-116); Anion Gap 7.1 mmol/L (3-11); BUN 9 mg/dL (7-18); Bilirubin, Total 0.4 mg/dL (0.2-1.0); CO2 30.9 mmol/L (21.0-32.0); Calcium 8.4 mg/dL (8.5-10.1); Chloride 104 mmol/L (98-107); Estimated GFR 110.73 (mL/min/1.73m2); Glucose 108 mg/dL (74-106); Potassium 4.2 mmol/L (3.5-5.1); Sodium 142 mmol/L (136-145); Total Protein 6.8 g/dL (6.4-8.2); Uric Acid 6.1 mg/dL (3.5-7.2)
[2025-08-20 13:17] LABS: Calculated LDL 103 mg/dL (<100); Cholesterol 225 mg/dL (<200); HDL Cholesterol 49 mg/dL (>or=40); Triglyceride 366 mg/dL (<150)
== END 2025-08-20 01:03 | disposition home or self-care (01) ==
LOC: LBO 01:02
PROVIDERS: PCP Nurse Practitioner Adult Health; Referring Provider Nurse Practitioner Adult Health; Visit Provider Nurse Practitioner Adult Health
DX: E78.1 Pure hyperglyceridemia (principal); R73.09 Other abnormal glucose; E78.5 Hyperlipidemia, unspecified; M10.9 Gout, unspecified
CPT/HCPCS: 36415; 80053; 80061; 83036; 84550